=== PATIENT | female | born 1980 | race American Indian/Alaskan Native ===

== ENCOUNTER 2022-03-19 10:27 | Outpatient (CLI) | payer BC ==
--- NOTE | 2022-03-19 13:09 | Fluoroscopy Report ---
UPPER GI HISTORY: Z98.84. TECHNIQUE: Single and double contrast barium technique utilized to evaluate the esophagus, stomach, and duodenal C-loop. FINDINGS: Associate Curator film demonstrates an unremarkable bowel gas pattern. A lap band device is identified in the left upper quadrant which appears in good position. To begin the exam, swallowing was evaluate d in the lateral position under direct fluoroscopy. Swallowing was normal. No mucosal irregularity, mass, mass effect, or critical stenosis. There were occasional tertiary co ntractions in the mid to distal esophagus with mild delay in esophageal emptying. There is otherwise the passage of the contrast agent through the lap band device. No hiatal hernia or episodes of reflux were witnessed during this exam. The lap band appears in good position with no evidence for slippage or erosion. The stomach is normal caliber and mucosal pattern. Normal duodenal bulb and duodenal sweep. No mucosal defect or ulceratio n. IMPRESSION: No abnormality is detected with the lap band device. Mild esophageal dysmotility was witnessed during this exam. Fluoroscopic time: 3.4 minutes Number of fluoroscopic images: 48 Signer Name: Roberto Carlos Whitman Jr, MD Signed: 03/19/2022 1:04 PM Workstation Name: [id number]
== END 2022-03-19 10:28 | disposition home or self-care (01) ==
LOC: FLUORO 10:27
PROVIDERS: ATTEND Surgery
DX: K21.9 Gastro-esophageal reflux disease without esophagitis (principal); Z98.84 Bariatric surgery status; K22.4 Dyskinesia of esophagus
CPT/HCPCS: 74246

== ENCOUNTER 2022-03-24 12:10 | Outpatient (CLI) | payer BC ==
[2022-03-24 13:31] LABS: Basophils # (Auto) 0.1 K/mm3 (0.0-0.1); Basophils % (Auto) 1.3 % (0.0-1.8); Eosinophils # (Auto) 0.1 K/mm3 (0.0-0.4); Eosinophils % (Auto) 1.4 % (0.0-4.3); Hematocrit 42.6 % (30.3-42.9); Hemoglobin 14.4 gm/dl (10.1-14.3); Lymphocytes # (Auto) 3.5 K/mm3 (1.2-5.4); Lymphocytes % (Auto) 33.7 % (13.4-35.0); Mean Corpuscular HGB Conc 34 % (30-34); Mean Corpuscular Volume 84 fl (79-97); Monocytes # (Auto) 0.8 K/mm3 (0.0-0.8); Monocytes % (Auto) 7.4 % (0.0-7.3); Platelet Count 290 K/mm3 (140-440); Red Blood Count 5.09 M/mm3 (3.65-5.03); Red Cell Distribution Width 13.7 % (13.2-15.2)
[2022-03-24 13:36] LABS: % Iron Saturation 16.61 %; Alanine Aminotransferase 16 units/L (7-56); Albumin 4.6 g/dL (3.9-5); BUN/Creatinine Ratio 21; Blood Urea Nitrogen 19 mg/dL (7-17); Calcium 10.4 mg/dL (8.4-10.2); Chol/HDL Ratio 3.22 %; HDL Cholesterol 49 mg/dL (40-59); Hemolysis Index 6; Iron 50 ug/dL (37-170); LDL Cholesterol,Direct 100 mg/dL (50-130); Total Iron Binding Capacity 301 mcg/dL (250-450)
== END 2022-03-24 12:11 | disposition home or self-care (01) ==
LOC: LAB 12:10
PROVIDERS: ATTEND Surgery
DX: Z01.812 Encounter for preprocedural laboratory examination (principal); Z13.21 Encounter for screening for nutritional disorder; Z13.29 Encounter for screening for other suspected endocrine disorder; Z13.1 Encounter for screening for diabetes mellitus; K30 Functional dyspepsia; E55.9 Vitamin D deficiency, unspecified; E66.01 Morbid (severe) obesity due to excess calories
CPT/HCPCS: 36415; 80053; 80061; 82306; 82607; 82728; 83036; 83550; 84443; 85025

== ENCOUNTER 2022-05-04 06:29 | Day surgery (SDC) | payer BC ==
[2022-05-04] MEDS ORDERED: SODIUM CHLORIDE 0.9% 1000 ML 1,000 ML IV SCH (07:00)
--- NOTE | 2022-05-04 08:19 | Anesthesia Day of Surgery ---
Anesthesia Day of Surgery - Day of Surgery Patient Examined: Yes Patient H&P Reviewed: Yes Patient is NPO: Yes
--- NOTE | 2022-05-04 08:19 | Anesthesia Consultation ---
Anesthesia Consult and Med Hx Date of service: 05/04/22 - Airway Anesthetic Teeth Evaluation: Good (braces) ROM Head & Neck: Adequate Mental/Hyoid Distance: Adequate Mallampati Class: Class III Intubation Access Assessment: Possibly Difficult - Pre-Operative Health Status ASA Pre-Surgery Classification: ASA3 Proposed Anesthetic Plan: General - Pulmonary Hx Asthma: Yes Hx Sleep Apnea: Yes (does not use CPAP) - Cardiovascular System Hx Hypertension: Yes - Other Systems Hx Obesity: Yes (Morbid obesity BMI 49.4)
[2022-05-04] MEDS ORDERED: propofoL 200 MG/20 ML VIAL IV ONE ×2 (08:20→08:57)
--- NOTE | 2022-05-04 09:24 | Operative Report ---
Operative Report Operative Report: DATE: 05/04/22 SURGERY: Upper endoscopy. SURGEON: Johana Tyler M.D. PROCEDURE: EGD with biopsy PRE OP DX: morbid obesity, GERD, hx of gastric banding POST OP DX: morbid obesity, GERD, hx of gastric banding TYPE OF ANESTHESIA: MAC. ESTIMATED BLOOD LOSS: None. COMPLICATIONS: None. SPECIMENS REMOVED: antral biopsy FINDINGS: 1. Normal banded gastric anatomy INDICATIONS:INDICATION FOR PROCEDURE: Patient is a 41-year-old female with a long history of morbid obesity. He has a hx of gastric banding and increased reflux. He is having EGD to evaluate his stomach anatomy prior to planning switching to another bariatric procedure. PROCEDURE DETAILS: After consent was reviewed, patient was taken back to the operating room where patient was placed in the left lateral decubitus position and a bite block was placed in the mouth. After a time-out was called, MAC anesthesia was initiated. I then passed the endoscope into his oropharynx, into her esophagus, visualized the entire esophagus, which was all within normal limits. Z-line was noted to about 36cm from incisors. There was an expected proximal stomach narrowing from external compression from the gastric band. I then visualized the stomach and the first portion of the duodenum and there were no abnormalities I could clearly visualize. A cold forceps biopsy of the antrum was taken and will be sent to pathology to evaluate for H.pylori. I then retroflexed the scope in the stomach and visualized the underside of the band. There were no signs of band erosion or malposition. I then desufflated the stomach and removed the endoscope. Patient tolerated procedure well and was transferred to recovery room in good and stable condition.
--- NOTE | 2022-05-04 09:38 | Discharge Summary ---
Providers - Providers Date of Admission: 05/04/22 Date of discharge: 05/04/22 Attending physician: BHAKTI MEADOWS MD Primary care physician: ROSHNI BLISS Hospitalization Reason for admission: pre-op planning egd Condition: Good Procedures: egd w/ bx Hospital course: Pt presented for a pre-op EGD as part of planning for up coming bariatric surgery. Procedure was uneventful and pt recovered well and was discharged to home. Disposition: 01 HOME / SELF CARE / HOMELESS Final Discharge Diagnosis (Prints w/discharge instructions): hx bariatric surgery, gerd, morbid obesity Core Measure Documentation - Palliative Care Palliative Care/ Comfort Measures: Not Applicable - Core Measures Any of the following diagnoses?: none Exam - Physical Exam Narrative exam: unchanged from pre-op - Constitutional Vitals: Temp Pulse Resp BP Pulse Ox 97.8 F 66 13 132/78 97 05/04/22 07:00 05/04/22 07:00 05/04/22 07:00 05/04/22 07:00 05/04/22 07:00 Plan Activity: no restrictions, advance as tolerated Diet: low carbohydrate Follow up with: ROSHNI BLISS MD [Primary Care Provider] - 7 Days Forms: [facility].
[2022-05-04 10:05] VITALS: BP 129/88
--- NOTE | 2022-05-04 10:48 | Post Anesthesia Evaluation ---
- Post Anesthesia Evaluation Patient Participated: Yes Airway Patent: Yes Stable Respiratory Function: Yes Nausea/Vomiting: No Temp > 96.8F: Yes Pain Manageable: Yes Adequeate Hydration: Yes Anesthesia Complications: No
== END 2022-05-04 09:35 | disposition home or self-care (01) ==
LOC: GIO 06:29
PROVIDERS: ATTEND Surgery
DX: K21.9 Gastro-esophageal reflux disease without esophagitis (principal); E66.01 Morbid (severe) obesity due to excess calories; I10 Essential (primary) hypertension; K31.89 Other diseases of stomach and duodenum; J45.909 Unspecified asthma, uncomplicated; Z91.013 Allergy to seafood; Z68.42 Body mass index [BMI] 45.0-49.9, adult
CPT/HCPCS: 43239; 81025; 88305; 88342; J2704; J7030